=== PATIENT | male | born 1980 | race Hispanic/Latino ===

== ENCOUNTER 2018-09-08 10:20 | Emergency (ER) | payer OTHER ==
[~2018-09-08] VITALS: Ht 182.9 cm; Wt 99.8 kg
[2018-09-08 11:40] VITALS: BP 132/84; TEMP 98.1
== END 2018-09-08 11:40 | disposition home or self-care (01) ==
LOC: ED 10:20
DX: S60.453A Superficial foreign body of left middle finger, initial encounter (principal); W45.8XXA Other foreign body or object entering through skin, initial encounter
CPT/HCPCS: 90471; 90715; 99283